=== PATIENT | female | born 1995 | race Caucasian/White ===

== ENCOUNTER 2017-06-03 14:51 | Inpatient (IN) | payer MEDICAID ==
[2017-06-03 15:48] LABS: ADD UMIC NO; UR ASCORBIC ACID NEGATIVE (NEGATIVE); UR BILIRUBIN (Dip) NEGATIVE (NEGATIVE); UR BLOOD (Dip) NEGATIVE (NEGATIVE); UR CLARITY CLEAR (CLEAR); UR COLOR YELLOW (YELLOW); UR GLUCOSE (Dip) NEGATIVE (NEGATIVE); UR KETONES (Dip) NEGATIVE (NEGATIVE); UR LEUKOCYTE ESTERASE (Dip) NEGATIVE Leu/ul (NEGATIVE); UR NITRITE (Dip) NEGATIVE (NEGATIVE); UR SPECIFIC GRAVITY (Dip) 1.008 (1.003-1.030); UR TOTAL PROTEIN (Dip) NEGATIVE (NEGATIVE); UR UROBILINOGEN (Dip) NEGATIVE (NEGATIVE)
[2017-06-03] MEDS ORDERED: AMPICILLIN 2 GM/NS (PMX) 100 ML IVPB ONE (16:00)
--- NOTE | 2017-06-03 16:02 | TRIAGE ---
OB Triage Datetime Report Generated by CPN: 06/03/2017 16:02 Datetime: 06/03/2017 15:30 Assessment Type: Triage Maternal Assessment Level of Consciousness: Fully Conscious DTR's/Clonus: DTRs 2+; No Clonus Headache: Denies Blurred Vision: No Respiratory Effort: Unlabored; Regular Rhythm; Equal Expansion Breath Sounds, Left: Clear and Equal Breath Sounds, Right: Clear and Equal Nausea/Vomiting: Denies RUQ Epigastric Pain: Denies Facial Edema: None Fall Risk Assessment History of Falling: (0) No Secondary Diagnosis: (0) No Ambulatory Aid: (0) Bedrest/Nurse Assist IV Therapy: (0) No Gait: (0) Normal/Bedrest/Immobile Mental Status: (0) Oriented to Own Ability Fall Score: 0 Fall Risk Score Definition: No Risk: No action required Datetime: 06/03/2017 15:19 Stage of : OB Triage Assessment Type: Triage Maternal Assessment Level of Consciousness: Fully Conscious DTR's/Clonus: DTRs 2+; No Clonus Headache: Denies Blurred Vision: No Respiratory Effort: Unlabored; Regular Rhythm; Equal Expansion Breath Sounds, Left: Clear and Equal Breath Sounds, Right: Clear and Equal Nausea/Vomiting: Denies RUQ Epigastric Pain: Denies Lower Extremities Edema: Bilateral Lower Extremities Degree: None Upper Extremities Edema: None Degree: None Facial Edema: None Temperature Route: Axillary Fall Risk Assessment History of Falling: (0) No Secondary Diagnosis: (0) No Ambulatory Aid: (0) Bedrest/Nurse Assist IV Therapy: (0) No Gait: (0) Normal/Bedrest/Immobile Mental Status: (0) Oriented to Own Ability Fall Score: 0 Fall Risk Score Definition: No Risk: No action required Datetime: 06/03/2017 15:10 Time of Arrival: 06/03/2017 14:50 EGA: 39.5 Arrived By: Ambulatory Arrived From: Home Chief Complaint: CONTRACTIONs Movement: Present Contractions: Irregular Vaginal Bleeding: None Vaginal Discharge: Denies Recent Sexual Intercouse: Denies Additional Patient Complaints: PT STATED SHE HAD LIMITED PNC AT [facility] . WILL CALL TO [facility] FOR CARE THIER Time Provider Notified: 06/03/2017 15:12 Provider Notified: dr. dinh Initial Plan: sve, bpp, efw, uds Datetime: 06/03/2017 15:09 Time of Arrival: 06/03/2017 14:50 Arrived By: Ambulatory Arrived From: Home Chief Complaint: CONTRACTIONS Vaginal Bleeding: None Vaginal Discharge: Denies Recent Sexual Intercouse: Denies Datetime: 06/03/2017 15:00 Vaginal Exam Dilatation (cms): 3.0 Effacement (%): 70 Station: -3 Exam By: JULIETTE AMEZQUITA
--- NOTE | 2017-06-03 16:26 | RADRPT ---
PROCEDURE: US OB biophysical profile. CLINICAL INDICATION: decreased movements, labor TECHNIQUE: Multiple sonographic images of the pelvis were obtained. The images were reviewed on a PACS workstation. COMPARISON: No prior studies are available for comparison. FINDINGS: There is a single viable intrauterine gestation. Cardiac activity is present with 139 beats per min [place]. There is a vertex presentation. The placenta is fundal. There is no evidence of placental abruption. There is an increased amount of amniotic fluid with an RAMIRO = 23.2 cm. Biophysical profile: movement 2/2 tone 2/2. breathing 2/2 RAMIRO 2/2 Total 07/07 RPTAT: AA . IMPRESSION: Normal biophysical profile. Mild polyhydramnios. . .Roberto Briceno MD, MD Date Time Electronically viewed and signed by .Roberto Briceno MD, MD on 06/03/2017 16:25 .S/
--- NOTE | 2017-06-03 16:26 | RADRPT ---
PROCEDURE: US OB. CLINICAL INDICATION: Size and dates TECHNIQUE: Multiple sonographic images of the pelvis and gravid uterus were obtained. The images were reviewed on a PACS workstation. COMPARISON: No prior studies are available for comparison. FINDINGS: There is a single viable intrauterine gestation. Cardiac activity is present with 146 beats per min viviana. There is a vertex presentation. The placenta is fundal. There is no evidence of placental abruption. There is an increased amount of amniotic fluid with an RAMIRO = 23.2 cm. Measurements were made in order to determine age. The results are as follows: BPD =9.3 cm HC =33.4 cm AC =36.2 cm FL =6.9 cm Estimated gestational age of approximately 38 weeks and 0 days based on ultrasound measurements. Clinical age: 39 weeks and 5 days. The estimated date of delivery is 06/17/17, based on ultrasound measurements. The EFW = 3568 g, 50%, based on LMP age. RPTAT: AA IMPRESSION: Single viable intrauterine gestation of approximately 38 weeks and 0 days based on ultrasound measu rements. .Roberto Briceno MD, MD Date Time Electronically viewed and signed by .Roberto Briceno MD, MD on 06/03/2017 16:26 .S/
[2017-06-03 17:09] LABS: BARBITURATES Negative (NEGATIVE); BENZODIAZEPINES Negative (NEGATIVE); CANNABINOIDS Negative (NEGATIVE); COCAINE Negative (NEGATIVE); OPIATES Negative (NEGATIVE)
[2017-06-03 18:46] LABS: ADD SCAN DIFF NO
[2017-06-03 18:49] LABS: BASOPHILS % 0.3 % (0.0-2.0); EOSINOPHILS # 0.1 10^3/ul (0.0-0.5); EOSINOPHILS % 1.2 % (0.0-7.0); HEMATOCRIT 31.5 % (37.0-47.0); HEMOGLOBIN 10.2 g/dl (12.0-16.0); LYMPHOCYTES # 2.9 10^3/ul (0.8-2.9); LYMPHOCYTES % 24.2 % (15.0-51.0); MEAN CORPUSCULAR HGB CONC 32.4 g/dl (32.0-37.0); MEAN CORPUSCULAR VOLUME 89.5 fl (82.0-101.0); MEAN PLATELET VOLUME 9.7 fl (7.4-10.4); MONOCYTE # 0.9 10^3/ul (0.3-0.9); MONOCYTES % 7.2 % (0.0-11.0); NEUTROPHILS % 65.9 % (39.0-77.0); PLATELET COUNT 361 10^3/UL (140-415); RED BLOOD COUNT 3.52 10^6/ul (4.20-5.40); RED CELL DISTRIBUTION WIDTH 13.7 % (11.5-14.5); WHITE BLOOD COUNT 12.1 10^3/ul (4.8-10.8)
[2017-06-03 19:19] LABS: ALBUMIN 3.8 g/dl (3.3-4.9); BILIRUBIN,INDIRECT 0.2 mg/dl (0-1.1); BILIRUBIN,TOTAL 0.2 mg/dl (0.2-1.3); TOTAL PROTEIN 6.6 g/dl (6.1-8.1)
[2017-06-03 19:45] LABS: CALCIUM 8.9 mg/dl (8.4-10.2); CREATININE 0.46 mg/dl (0.44-1.00)
[2017-06-03] MEDS ORDERED: AMPICILLIN 1 GM/NS (PMX) 50 ML IVPB SCH (20:00)
--- NOTE | 2017-06-03 23:37 | PN ---
Triage Information Date/Time Jun 03, 2017 at 15:15 Weeks of Gestation 38 weeks and 3 days : 1 Para: 0 Additional information 21-year-old with IUP at 38 weeks and 3 days by her ultrasound today as well as ultrasound and [facility] in third trimester with no care presented with complaint of feeling uterine contractions. She had only 2 visits per patient at [facility]. Records obtained from [facility] that confirms her gestational age by her third trimester prior ultrasound today's also consistent. Patient was unaware of the . She denies any leaking of fluid or vaginal bleeding or decreased movement. She does not have any insurance. Objective Heart Rate: 130's Contractions: 6-10 Minutes Apart Exam General appearance: Alert and oriented 4 patient does not appear to be in any acute distress. Abdomen: Soft, gravid, nontender, fundal height consistent with gestational age. NST: Category 1 BPP: 07/07 Growth scan confirms gestational age at about 38+ weeks Normal amniotic fluid noted Patient received hydration and observed and examined. Repeat examination did not show any cervical change. Exam 1/2-2 cm 60% -2 prior to discharge home Results/Medications Result Diagram: 06/03/17 1817 06/03/17 1843 Results 24 hrs Laboratory Tests Test 06/03/17 14:10 06/03/17 18:17 06/03/17 18:43 Urine Color YELLOW Urine Clarity CLEAR Urine pH 7.0 Urine Specific [place] 1.008 Urine Ketones NEGATIVE Urine Nitrite NEGATIVE Urine Bilirubin NEGATIVE Urine Urobilinogen NEGATIVE Urine Leukocyte Esterase NEGATIVE Urine Hemoglobin NEGATIVE Urine Glucose NEGATIVE Urine Total Protein NEGATIVE Urine Opiates Screen Negative Urine Barbiturates Negative Urine Amphetamines Screen Negative Urine Benzodiazepines Screen Negative Urine Cocaine Screen Negative Urine Cannabinoids Negative White Blood Count 12.1 H Red Blood Count 3.52 L Hemoglobin 10.2 L Hematocrit 31.5 L Mean Corpuscular Volume 89.5 Mean Corpuscular Hemoglobin 29.0 Mean Corpuscular Hemoglobin Concent 32.4 Red Cell Distribution Width 13.7 Platelet Count 361 Mean Platelet Volume 9.7 Neutrophils % 65.9 Lymphocytes % 24.2 Monocytes % 7.2 Eosinophils % 1.2 Basophils % 0.3 Nucleated Red Blood Cells % 0.0 Neutrophils # 8.0 H Lymphocytes # 2.9 Monocytes # 0.9 Eosinophils # 0.1 Basophils # 0.0 Nucleated Red Blood Cells # 0.0 Hemoglobin A1c 5.9 Total Bilirubin 0.2 Direct Bilirubin 0.00 Indirect Bilirubin 0.2 Aspartate Amino Transf (AST/SGOT) 17 Alanine Aminotransferase (ALT/SGPT) 22 Alkaline Phosphatase 142 H Total Protein 6.6 Albumin 3.8 Hepatitis B Surface Antigen NEGATIVE Sodium Level 132 L Potassium Level 4.0 Chloride Level 104 Carbon Dioxide Level 22 Anion Gap 10 Blood Urea Nitrogen 5 L Creatinine 0.46 Glucose Level 95 Calcium Level 8.9 Assessment/Plan IUP at 38 weeks plus No care No evidence of PPROM testing reassuring Missed. all her labs as well as ultrasound and genetic screening for chromosome abnormalities labs ordered today as well as hemoglobin A1c Patient to come back to triage tomorrow to see social work care in order to expedite the process of obtaining insurance If she does not deliver could be urgently referred to perinatologist for anatomy ultrasound recommend continue testing in triage every 3 days We will consult the perinatologist about the time of delivery Labor precaution and kick count discussed. Patient verbalized understanding all above discussion CARMEN WARE MD Jun 03, 2017 23:37
== END 2017-06-03 19:43 | disposition home or self-care (01) | DRG 780 ==
LOC: L-D 14:51 → OBT 14:51 → L-D 15:15 → OBT 15:15 → L-D 15:48
PROVIDERS: ADMIT Obstetrics & Gynecology Obstetrics; ATTEND Obstetrics & Gynecology Obstetrics
DX: O47.1 False labor at or after 37 completed weeks of gestation (principal); O09.33 Supervision of pregnancy with insufficient antenatal care, third trimester; Z3A.38 38 weeks gestation of pregnancy
CPT/HCPCS: 76815; 76818; 80048; 80076; 80307; 81003; 83036; 85025; 86592; 86762; 87081; 87340; 87591; G0463

== ENCOUNTER 2017-06-09 20:47 | Inpatient (IN) | payer MEDICAID ==
[~2017-06-09] VITALS: Ht 167.6 cm; Wt 87.2 kg
[2017-06-09] MEDS ORDERED: PREN1TAB79 PO (21:38)
[2017-06-09 21:39] VITALS: BP 123/64; PULSE 109; RESP 20; Ht 167.6 cm; Wt 87.2 kg
--- NOTE | 2017-06-09 22:51 | RADRPT ---
PROCEDURE: ULTRASOUND BIOPHYSICAL PROFILE CLINICAL INDICATION: 21-year-old female with contractions for viability. TECHNIQUE: Multiple sonographic images were obtained in order to perform a biophysical profile The images were reviewed on a PACS workstation. COMPARISON: None. FINDINGS: There is a single viable intrauterine gestation. There is a vertex presentation. Cardiac activity i s present at 139 beats per minute. The placenta is fundal. The results of the biophysical profile a re as follows: breathing movement = 2/2 Gross body movement = 2/2 tone = 2/2 Qualitative amniotic fluid volume = 2/2 Amniotic fluid index equals 15.9 cm. This yields a biophysical profile score of 8/8. IMPRESSION: Biophysical profile score is 8/8. .Kris Collazo MD, Date Time Electronically viewed and signed by .Kris Collazo MD, on 06/09/2017 22:51 .M/
--- NOTE | 2017-06-09 22:53 | RADRPT ---
PROCEDURE: ULTRASOUND OBSTETRICAL CLINICAL INDICATION: 21-year-old female with contractions for size and date determination . TECHNIQUE: Multiple sonographic images of the pelvis were obtained. The images were reviewed on a PACS workstation. COMPARISON: Ultrasound biophysical profile obtained concurrently: OB ultrasound June 03, 2017. FINDINGS: The cervix is not well visualized. There is a single viable intrauterine gestation. Cardiac activit y is present with 143 beats per minute. There is a vertex presentation. Measurements were made in or fredi to determine age. The results are as follows: BPD = 9.36 cm, HC = 34.23 cm, AC = 37.50 cm, FL = 7.22 cm. This yields and estimated gestational ag e of approximately 39 weeks 0 days. The estimated date of delivery is June 16, 2017. The EFW = 392 8 +/- 589 g (8 lb 11 oz). The GP is 84%. The placenta is fundal. There is no evidence for an abruption or placenta previa. IMPRESSION: 1. Single viable intrauterine gestation of approximately 39 weeks 0 days with vertex presentation. The estimated date of delivery is June 16, 2017. 2. The estimated weight is 3928 +/- 589 g (8 lb 11 oz). The GP is 84%. .Kris Collazo MD, Date Time Electronically viewed and signed by .Kris Collazo MD, MD on 06/09/2017 22:53 .M/
[2017-06-09] MEDS ORDERED: MISOPROSTOL 200 MCG TAB PR PRN (23:30)
[2017-06-09] MEDS ORDERED: BUTORPHANOL 2 MG INJ IV PRN (23:30)
[2017-06-09] MEDS ORDERED: OXYTOCIN 30 UNITS/LR 500 ML IV SCH ×3 (23:30)
[2017-06-09] MEDS ORDERED: AMPICILLIN 2 GM/NS (PMX) 100 ML IV ONE (23:30)
[2017-06-09] MEDS ORDERED: LACTATED RINGER'S 1,000 ML IV PRN (23:30)
[2017-06-09] MEDS ORDERED: LIDOCAINE 1% (MPF) 30 ML INJ INJ PRN (23:30)
[2017-06-09] MEDS ORDERED: IBUPROFEN 600 MG TAB PO PRN (23:30)
[2017-06-09] MEDS ORDERED: OXYTOCIN 30 UNITS/LR 500 ML IV PRN (23:30)
[2017-06-09] MEDS ORDERED: METHYLERGONOVINE 0.2 MG INJ IM PRN (23:30)
[2017-06-09] MEDS ORDERED: CARBOPROST 250 MCG INJ IM PRN (23:30)
[2017-06-09] MEDS: LACTATED RINGER'S 1,000 ML IV SCH (23:33)
[2017-06-09 23:40] LABS: ADD SCAN DIFF NO
[2017-06-09 23:49] LABS: BASOPHILS % 0.3 % (0.0-2.0); EOSINOPHILS # 0.1 10^3/ul (0.0-0.5); EOSINOPHILS % 1.1 % (0.0-7.0); HEMATOCRIT 28.8 % (37.0-47.0); HEMOGLOBIN 9.6 g/dl (12.0-16.0); LYMPHOCYTES # 3.2 10^3/ul (0.8-2.9); LYMPHOCYTES % 27.2 % (15.0-51.0); MEAN CORPUSCULAR HEMOGLOBIN 29.3 pg (29.0-33.0); MEAN CORPUSCULAR HGB CONC 33.3 g/dl (32.0-37.0); MEAN CORPUSCULAR VOLUME 87.8 fl (82.0-101.0); MEAN PLATELET VOLUME 9.7 fl (7.4-10.4); MONOCYTES % 8.4 % (0.0-11.0); NEUTROPHIL # 7.2 10^3/ul (1.6-7.5); NEUTROPHILS % 62.1 % (39.0-77.0); PLATELET COUNT 366 10^3/UL (140-415); RED BLOOD COUNT 3.28 10^6/ul (4.20-5.40); RED CELL DISTRIBUTION WIDTH 13.4 % (11.5-14.5); WHITE BLOOD COUNT 11.6 10^3/ul (4.8-10.8)
[2017-06-09 23:55] LABS: ADD UMIC YES; UR ASCORBIC ACID NEGATIVE (NEGATIVE); UR BACTERIA FEW /HPF (NONE SEEN); UR BILIRUBIN (Dip) NEGATIVE (NEGATIVE); UR BLOOD (Dip) NEGATIVE (NEGATIVE); UR CLARITY CLEAR (CLEAR); UR COLOR YELLOW (YELLOW); UR GLUCOSE (Dip) NEGATIVE (NEGATIVE); UR KETONES (Dip) NEGATIVE (NEGATIVE); UR LEUKOCYTE ESTERASE (Dip) 2+ Leu/ul (NEGATIVE); UR NITRITE (Dip) NEGATIVE (NEGATIVE); UR RBC 1 /HPF (0-5); UR SPECIFIC GRAVITY (Dip) 1.006 (1.003-1.030); UR SQUAMOUS EPITHELIAL CELL FEW /HPF (FEW); UR TOTAL PROTEIN (Dip) NEGATIVE (NEGATIVE); UR UROBILINOGEN (Dip) NEGATIVE (NEGATIVE)
[2017-06-10 00:16] LABS: INR 0.96; PARTIAL THROMBOPLASTIN TIME 29.2 Sec (25.0-35.0); PROTIME 12.8 Sec (12.2-14.2)
[2017-06-10 00:22] LABS: BARBITURATES Negative (NEGATIVE); BENZODIAZEPINES Negative (NEGATIVE); CANNABINOIDS Negative (NEGATIVE); COCAINE Negative (NEGATIVE); OPIATES Negative (NEGATIVE)
[2017-06-10] MEDS ORDERED: LACTATED RINGER'S 1,000 ML IV ONE (00:41)
[2017-06-10] MEDS: LACTATED RINGER'S 1,000 ML IV SCH ×3 (00:43→11:01)
[2017-06-10] MEDS ORDERED: FENTAnyl 2MCG/ML-ROPIV 0.2% 100 ML ONE (00:45)
--- NOTE | 2017-06-10 00:54 | HP ---
Date/Time of Note Date/Time of Note DATE: 06/10/17 TIME: 00:53 OB - History Hx of Present : 6 Para: 4 Care: Limited Care Ultrasounds: Normal mid trimester US Obstetrical Complications: None Medical Complications: None Past Family/Social History * Past Medical, Surgical, Family and Obstetric Histories reviewed from chart. OB Admission Exam Vital Signs Vital Signs Vital Signs Date Time Temp Pulse Resp B/P Pulse Ox O2 Delivery O2 Flow Rate FiO2 06/09/17 21:39 98.1 109 20 123/64 Room Air Physical Exam Lungs: Clear Abdomen: WNL Extremities: Normal Cervical Dilatation: 3cm Effacement: 75% Station: -1 Membranes: Intact Heart Rate: 140's Accelerations: Accelerations Present Decelerations: No Decelerations Varibility: Moderate Contractions on Admission: < 5 Minutes Apart Last 72 hours Lab Results CBC & BMP 06/09/17 23:25 OB Assessment/Plan Reason for admission: induction of labor Induction Method: per Pitocin Protocol RUBY NUÑEZ M.D. Jun 10, 2017 00:54
[2017-06-10] MEDS ORDERED: KETOROLAC 30 MG INJ IV PRN (01:00)
[2017-06-10] MEDS ORDERED: DIPHENHYDRAMINE 50 MG INJ IV PRN (01:00)
[2017-06-10] MEDS ORDERED: NALOXONE (0.4 MG/ML) INJ IV PRN (01:00)
[2017-06-10] MEDS ORDERED: PROCHLORPERAZINE 10 MG INJ IV PRN (01:00)
[2017-06-10] MEDS ORDERED: morphine 2 MG INJ IV PRN (01:00)
[2017-06-10] MEDS ORDERED: ONDANSETRON 4 MG INJ IV ONE (01:00)
[2017-06-10] MEDS ORDERED: ONDANSETRON 4 MG INJ IV PRN ×2 (01:00→16:00)
[2017-06-10] MEDS ORDERED: morphine 4 MG/ML VIAL IV PRN (01:00)
[2017-06-10] MEDS ORDERED: CITRIC ACID/NA CITRATE 30 ML CUP PO ONE (01:00)
[2017-06-10] MEDS: FENTAnyl 2MCG/ML-ROPIV 0.2% 100 ML BAG EPI SCH ×2 (02:13→07:51)
[2017-06-10] MEDS ORDERED: AZITHROMYCIN 500MG/NS (PMX) 250 ML IVPB ONE (03:00)
[2017-06-10] MEDS ORDERED: AMPICILLIN 1 GM/NS (PMX) 50 ML IV SCH (03:30)
--- NOTE | 2017-06-10 08:06 | TRIAGE ---
OB Triage Datetime Report Generated by CPN: 06/10/2017 08:06 Datetime: 06/10/2017 07:27 Assessment Type: Ongoing Assessment Datetime: 06/10/2017 07:00 Stage of : Labor Labor Evaluation Frequency: 6-7 Monitor Mode: External Duration (sec)2399: 50-90 Quality: Strong Pattern: Normal: <= 5 Contractions in 10 Minutes Resting Tone [place]: Relaxed Heart Rate FHR Baseline Rate: 135 Monitor Mode: External US FHR Baseline Changes: No Baseline Change Variability: Moderate 6-25 bpm Decelerations: None Category: Category I Datetime: 06/10/2017 06:30 Stage of : Labor Labor Evaluation Frequency: 4-5 Monitor Mode: External Duration (sec)2399: 60-100 Quality: Strong Pattern: Normal: <= 5 Contractions in 10 Minutes Resting Tone [place]: Relaxed Heart Rate FHR Baseline Rate: 135 Monitor Mode: External US FHR Baseline Changes: No Baseline Change Variability: Moderate 6-25 bpm Decelerations: None Category: Category I Datetime: 06/10/2017 06:00 Stage of : Labor Labor Evaluation Frequency: 3-5 Monitor Mode: External Duration (sec)2399: 70-90 Quality: Strong Pattern: Normal: <= 5 Contractions in 10 Minutes Resting Tone [place]: Relaxed Heart Rate FHR Baseline Rate: 135 Monitor Mode: External US FHR Baseline Changes: No Baseline Change Variability: Moderate 6-25 bpm Accelerations: 15X15 Decelerations: None Category: Category I Datetime: 06/10/2017 05:30 Stage of : Labor Labor Evaluation Frequency: 3 Monitor Mode: External Duration (sec)2399: 60-80 Quality: Strong Pattern: Normal: <= 5 Contractions in 10 Minutes Resting Tone [place]: Relaxed Heart Rate FHR Baseline Rate: 135 Monitor Mode: External US FHR Baseline Changes: No Baseline Change Variability: Moderate 6-25 bpm Accelerations: 15X15 Decelerations: None Category: Category I Datetime: 06/10/2017 05:01 Vaginal Exam Dilatation (cms): 5.0 Datetime: 06/10/2017 05:00 Stage of : Labor Labor Evaluation Frequency: 2-5 Monitor Mode: External Duration (sec)2399: 70-110 Quality: Strong Pattern: Normal: <= 5 Contractions in 10 Minutes Resting Tone [place]: Relaxed Heart Rate FHR Baseline Rate: 135 Monitor Mode: Internal Scalp Electrode FHR Baseline Changes: No Baseline Change Variability: Moderate 6-25 bpm Accelerations: 15X15 Decelerations: None Category: Category I Vaginal Exam Dilatation (cms): 5.0 Effacement (%): 90 Station: -1 Exam By: DR. NUÑEZ Membrane Status: Ruptured Membranes Rupture Method: Artificial Amniotic Fluid Color: Clear Amniotic Fluid Amount: Large Amniotic Fluid Odor: Normal Datetime: 06/10/2017 04:30 Stage of : Labor Labor Evaluation Frequency: 2-9 Monitor Mode: External Duration (sec)2399: 70-100 Quality: Strong Pattern: Normal: <= 5 Contractions in 10 Minutes Resting Tone [place]: Relaxed Heart Rate FHR Baseline Rate: 135 Monitor Mode: External US FHR Baseline Changes: No Baseline Change Variability: Moderate 6-25 bpm Accelerations: 15X15 Decelerations: None Category: Category I Datetime: 06/10/2017 04:00 Stage of : Labor Labor Evaluation Frequency: 2-4 Monitor Mode: External Duration (sec)2399: 80-120 Quality: Strong Pattern: Normal: <= 5 Contractions in 10 Minutes Resting Tone [place]: Relaxed Heart Rate FHR Baseline Rate: 135 Monitor Mode: External US FHR Baseline Changes: No Baseline Change Variability: Moderate 6-25 bpm Accelerations: 15X15 Decelerations: None Category: Category I Datetime: 06/10/2017 03:30 Stage of : Labor Labor Evaluation Frequency: 2-3.5 Monitor Mode: External Duration (sec)2399: 60-90 Quality: Moderate Pattern: Normal: <= 5 Contractions in 10 Minutes Resting Tone [place]: Relaxed Heart Rate FHR Baseline Rate: 135 Monitor Mode: External US FHR Baseline Changes: No Baseline Change Variability: Moderate 6-25 bpm Accelerations: 15X15 Decelerations: None Category: Category I Datetime: 06/10/2017 03:00 Stage of : Labor Labor Evaluation Frequency: 2-4 Monitor Mode: External Duration (sec)2399: 60-90 Quality: Moderate Pattern: Normal: <= 5 Contractions in 10 Minutes Resting Tone [place]: Relaxed Heart Rate FHR Baseline Rate: 135 Monitor Mode: External US FHR Baseline Changes: No Baseline Change Variability: Moderate 6-25 bpm Accelerations: 15X15 Decelerations: None Category: Category I Datetime: 06/10/2017 02:40 Stage of : Labor Datetime: 06/10/2017 02:30 Stage of : Labor Labor Evaluation Frequency: 2-4 Monitor Mode: External Duration (sec)2399: 60-90 Quality: Moderate Pattern: Normal: <= 5 Contractions in 10 Minutes Resting Tone [place]: Relaxed Heart Rate FHR Baseline Rate: 135 Monitor Mode: External US FHR Baseline Changes: No Baseline Change Variability: Moderate 6-25 bpm Accelerations: 15X15 Decelerations: None Category: Category I Datetime: 06/10/2017 02:00 Stage of : Labor Labor Evaluation Frequency: 3-3.5 Monitor Mode: External Duration (sec)2399: 50-110 Quality: Moderate Pattern: Normal: <= 5 Contractions in 10 Minutes Resting Tone [place]: Relaxed Heart Rate FHR Baseline Rate: 135 Monitor Mode: External US FHR Baseline Changes: No Baseline Change Variability: Moderate 6-25 bpm Accelerations: 15X15 Decelerations: None Category: Category I Datetime: 06/10/2017 01:55 Vaginal Exam Dilatation (cms): 3.0 Effacement (%): 70 Station: -2 Exam By: Marie POTTS Membrane Status: Intact Vaginal Bleeding: None Cervix, Consistency: Soft Cervix, Position: Midposition Presentation 'A': Cephalic Datetime: 06/10/2017 01:32 Comments: LOSS OF CONTACT D/T MATERNAL POSITION. CONTINUED SURVEILLANCE. PT REPORTED M OVEMENT. Datetime: 06/10/2017 01:30 Labor Evaluation Frequency: IRREGULAR Monitor Mode: External Duration (sec)2399: 50-100 Quality: Moderate Pattern: Normal: <= 5 Contractions in 10 Minutes Resting Tone [place]: Relaxed Heart Rate FHR Baseline Rate: 135 Monitor Mode: External US FHR Baseline Changes: No Baseline Change Variability: Moderate 6-25 bpm Accelerations: 15X15 Decelerations: None Category: Category I Datetime: 06/10/2017 01:26 Stage of : Labor Datetime: 06/10/2017 01:22 Stage of : Labor Datetime: 06/10/2017 01:00 Stage of : Labor Labor Evaluation Frequency: IRREGULAR Monitor Mode: External Duration (sec)2399: 70-80 Quality: Moderate Pattern: Normal: <= 5 Contractions in 10 Minutes Resting Tone [place]: Relaxed Heart Rate FHR Baseline Rate: 135 Monitor Mode: External US Variability: Moderate 6-25 bpm Accelerations: 15X15 Decelerations: None Category: Category I Pain Assessment Pain Scale: 8 Pain Presence: Intermittent Pain Type: Contraction Pain Location: Abdomen; Back Pain Goal: 0 Pain Relief Measures: Comfort Measures Datetime: 06/10/2017 00:49 Stage of : Labor Datetime: 06/10/2017 00:20 Stage of : Labor Datetime: 06/10/2017 00:00 Stage of : Labor Assessment Type: Admission Assessment Vaginal Bleeding: None Maternal Assessment Level of Consciousness: Fully Conscious DTR's/Clonus: DTRs 2+; No Clonus Headache: Denies Blurred Vision: No Respiratory Effort: Unlabored; Regular Rhythm; Equal Expansion Breath Sounds, Left: Clear and Equal Breath Sounds, Right: Clear and Equal Nausea/Vomiting: Denies RUQ Epigastric Pain: Denies Lower Extremities Edema: None Degree: None Upper Extremities Edema: None Degree: None Facial Edema: None Fall Risk Assessment History of Falling: (0) No Secondary Diagnosis: (0) No Ambulatory Aid: (0) Bedrest/Nurse Assist IV Therapy: (20) Yes Gait: (0) Normal/Bedrest/Immobile Mental Status: (0) Oriented to Own Ability Fall Score: 20 Fall Risk Score Definition: No Risk: No action required Pain Assessment Pain Scale: 8 Pain Presence: Intermittent Pain Type: Contraction Pain Location: Abdomen; Back Pain Goal: 0 Datetime: 06/09/2017 23:55 Time of Arrival: 06/10/2017 00:00 EGA: 40.5 Arrived By: Wheelchair Arrived From: Other Unit in Hospital Datetime: 06/09/2017 23:00 Stage of : OB Triage Labor Evaluation Frequency: 1-3 Monitor Mode: External Duration (sec)2399: 50-90 Quality: Mild Pattern: Normal: <= 5 Contractions in 10 Minutes Resting Tone [place]: Relaxed Heart Rate FHR Baseline Rate: 145 Monitor Mode: External US Variability: Moderate 6-25 bpm Accelerations: 15X15 Decelerations: None Category: Category I Datetime: 06/09/2017 22:55 Stage of : OB Triage Datetime: 06/09/2017 22:03 Stage of : OB Triage Datetime: 06/09/2017 22:00 Stage of : OB Triage Labor Evaluation Frequency: 3-5 Monitor Mode: External Duration (sec)2399: 40-90 Quality: Mild Pattern: Normal: <= 5 Contractions in 10 Minutes Resting Tone [place]: Relaxed Heart Rate FHR Baseline Rate: 150 Monitor Mode: External US Variability: Moderate 6-25 bpm Accelerations: 15X15 Decelerations: None Category: Category I Datetime: 06/09/2017 21:44 Stage of : OB Triage Datetime: 06/09/2017 21:30 Vaginal Exam Dilatation (cms): 3.0 Effacement (%): 60 Station: -3 Exam By: ALIRIO Norris Membrane Status: Intact Vaginal Bleeding: None Cervix, Consistency: Firm Cervix, Position: Posterior Datetime: 06/09/2017 21:16 Stage of : OB Triage Datetime: 06/09/2017 21:00 Stage of : OB Triage Labor Evaluation Frequency: 1.5-3.5 Monitor Mode: External Duration (sec)2399: 40-70 Quality: Mild Pattern: Normal: <= 5 Contractions in 10 Minutes Resting Tone [place]: Relaxed Heart Rate FHR Baseline Rate: 160 Monitor Mode: External US Variability: Moderate 6-25 bpm Accelerations: 15X15 Decelerations: None Category: Category I Datetime: 06/09/2017 20:46 Stage of : OB Triage Assessment Type: Triage Maternal Assessment Level of Consciousness: Fully Conscious DTR's/Clonus: DTRs 2+; No Clonus Headache: Denies Blurred Vision: No Respiratory Effort: Unlabored; Regular Rhythm; Equal Expansion Breath Sounds, Left: Clear and Equal Breath Sounds, Right: Clear and Equal Nausea/Vomiting: Denies RUQ Epigastric Pain: Denies Lower Extremities Edema: Bilateral Lower Extremities Degree: 1+ Upper Extremities Edema: None Degree: None Facial Edema: None Temperature Route: Oral Fall Risk Assessment History of Falling: (0) No Secondary Diagnosis: (0) No Ambulatory Aid: (0) Bedrest/Nurse Assist IV Therapy: (0) No Gait: (0) Normal/Bedrest/Immobile Mental Status: (0) Oriented to Own Ability Fall Score: 0 Fall Risk Score Definition: No Risk: No action required Datetime: 06/09/2017 20:35 Time of Arrival: 06/09/2017 20:31 EGA: 40.4 Arrived By: Ambulatory Arrived From: Home Chief Complaint: UCs [id number] Movement: Present Contractions: Irregular Time Contractions Began: 06/09/2017 17:00 Contractions: [id number] Rupture of Membranes: Denies Vaginal Bleeding: None Vaginal Discharge: Present Abdominal Trauma: Not Applicable Patient Complaints: Contractions; Cramping Time Provider Notified: 06/09/2017 21:44 Provider Notified: Initial Plan: EFM x2, VE Datetime: 06/03/2017 19:27 Assessment Type: Ongoing Assessment Maternal Assessment Level of Consciousness: Fully Conscious DTR's/Clonus: DTRs 2+; No Clonus Headache: Denies Blurred Vision: No Respiratory Effort: Unlabored; Regular Rhythm; Equal Expansion Breath Sounds, Left: Clear and Equal Breath Sounds, Right: Clear and Equal Nausea/Vomiting: Denies RUQ Epigastric Pain: Denies Lower Extremities Edema: None Degree: None Upper Extremities Edema: None Degree: None Facial Edema: None Temperature Route: Oral Fall Risk Assessment History of Falling: (0) No Secondary Diagnosis: (0) No Ambulatory Aid: (0) Bedrest/Nurse Assist IV Therapy: (0) No Gait: (0) Normal/Bedrest/Immobile Mental Status: (0) Oriented to Own Ability Fall Score: 0 Fall Risk Score Definition: No Risk: No action required Datetime: 06/03/2017 19:15 Membrane Status: Intact Datetime: 06/03/2017 17:37 Labor Evaluation Frequency: OCCASIONAL Monitor Mode: External Duration (sec)2399: 50-60 Quality: Mild Pattern: Normal: <= 5 Contractions in 10 Minutes Resting Tone [place]: Relaxed Heart Rate FHR Baseline Rate: 135 Monitor Mode: External US FHR Baseline Changes: No Baseline Change Variability: Moderate 6-25 bpm Accelerations: 15X15 Decelerations: None Category: Category I Datetime: 06/03/2017 17:36 Monitor Mode: External US Datetime: 06/03/2017 17:00 Labor Evaluation Frequency: OCCASIONAL Monitor Mode: External Duration (sec)2399: 40-50 Quality: Mild Pattern: Normal: <= 5 Contractions in 10 Minutes Resting Tone [place]: Relaxed Heart Rate FHR Baseline Rate: 135 Monitor Mode: External US FHR Baseline Changes: No Baseline Change Variability: Moderate 6-25 bpm Accelerations: 15X15 Decelerations: None Category: Category I Datetime: 06/03/2017 16:55 Vaginal Exam Dilatation (cms): 2.0 Effacement (%): 70 Station: -3 Exam By: SS Datetime: 06/03/2017 15:30 Fall Score: 0 Fall Risk Score Definition: No Risk: No action required Datetime: 06/03/2017 15:19 Fall Score: 0 Fall Risk Score Definition: No Risk: No action required Datetime: 06/03/2017 15:10 EGA: 39.5
--- NOTE | 2017-06-10 13:31 | LDN ---
Date/Time of Note Date/Time of Note DATE: 06/10/17 TIME: 13:29 Delivery Summary I was called for delivery due to maternal urge to push. Patient had unremarkable intrapartum course Weeks of Gestation 40 weeks and 5 days Placenta Delivered: Spontaneously Meconium: none Episiotomy: No Perineal laceration: 0 Laceration repair: No laceration Anesthesia type: Epidural Sponge & Needle done & correct: Yes All needle counts correct: Yes Any foreign bodies felt in the: No Problems: Delivery Information Sex Sex: female Apgars 1 Minute: 9 5 Minute: 9 Suctioning Nose & mouth suctioned at [place]: Yes Delee suction performed: Yes Umbilical Cord Umbilical cord with: 3 Vessels Cord presentations: no nuchal cord Cord Blood was obtained: Yes CARMEN WARE MD Jun 10, 2017 13:31
[2017-06-10 15:15] VITALS: BP 120/64; PULSE 91; RESP 18
[2017-06-10] MEDS: LACTATED RINGER'S 1,000 ML IV* SCH ×2 (15:40→23:40)
[2017-06-10] MEDS ORDERED: LANOLIN 7 GM TUBE TOP PRN (16:00)
[2017-06-10] MEDS ORDERED: WITCH HAZEL/GLYCERIN PAD PR PRN (16:00)
[2017-06-10] MEDS ORDERED: MISOPROSTOL 200 MCG TAB PR PRN (16:00)
[2017-06-10] MEDS ORDERED: DIPHENHYDRAMINE 25 MG CAP PO PRN (16:00)
[2017-06-10] MEDS ORDERED: METHYLERGONOVINE 0.2 MG TAB PO PRN (16:00)
[2017-06-10] MEDS ORDERED: OXYTOCIN 30 UNITS/LR 500 ML IV PRN (16:00)
[2017-06-10] MEDS ORDERED: CARBOPROST 250 MCG INJ IM PRN (16:00)
[2017-06-10] MEDS ORDERED: ZOLPIDEM 5 MG TAB PO PRN (16:00)
[2017-06-10] MEDS ORDERED: METHYLERGONOVINE 0.2 MG INJ IM PRN (16:00)
[2017-06-10 16:44] LABS: HEMATOCRIT 25.4 % (37.0-47.0); HEMOGLOBIN 8.5 g/dl (12.0-16.0)
[2017-06-10] MEDS: IBUPROFEN 600 MG TAB PO SCH (18:11)
[2017-06-10 20:00] VITALS: BP 114/58; PULSE 100; RESP 20
[2017-06-10] MEDS: SENNA/DOCUSATE NA (8.6MG/50MG) TAB PO SCH (21:14)
[2017-06-10] MEDS: morphine 2 MG INJ IV PRN (22:48)
[2017-06-11] MEDS: IBUPROFEN 600 MG TAB PO SCH ×5 (00:13→23:57)
[2017-06-11] MEDS: morphine 2 MG INJ IV PRN (02:56)
[2017-06-11 08:15] VITALS: BP 119/79; PULSE 90; RESP 19
[2017-06-11] MEDS: SENNA/DOCUSATE NA (8.6MG/50MG) TAB PO SCH ×2 (09:09→21:48)
[2017-06-11] MEDS: ACETAMINOPHEN/CODEINE #3 TAB PO PRN ×2 (09:09→14:49)
[2017-06-11 12:17] VITALS: BP 125/74; PULSE 76; RESP 20
[2017-06-11 12:20] LABS: RUBELLA ANTIBODY - IGG 1.01 index
--- NOTE | 2017-06-11 12:20 | PN ---
Date/Time of Note Date/Time of Note DATE: 06/11/17 TIME: 12:17 OB Subjective Subjective Subjective June 11, 2017 Hospital visit Post day 1 Patient is doing well, Ambulatory She is afebrile Abdomen is soft , Fundus is firm Moderate amount of lochia Breasts are soft, Nipples are intact No calf tenderness. Perineum intact Laboratory Tests Test 06/10/17 16:25 Hemoglobin 8.5g/dl Hematocrit 25.4% Current Medications Medications (Trade) Dose Ordered Sig/Yadira Route PRN Reason Start Time Stop Time Status Last Admin Dose Admin Lactated Ringer's 1,000 ml @ 125 mls/hr Q8H IV 06/09/17 23:06 06/10/17 15:47 DC 06/10/17 11:01 Ampicillin 100 ml @ 100 mls/hr ONCE ONCE IV 06/09/17 23:30 06/10/17 00:29 DC Ampicillin 50 ml @ 100 mls/hr Q4H IV 06/10/17 03:30 06/10/17 03:30 DC Oxytocin/Lactated Ringer's 500 ml @ 0 mls/hr TITRATE IV 06/09/17 23:30 06/10/17 15:47 DC 06/10/17 02:10 Butorphanol Tartrate (Stadol) 2 mg Q2H PRN IV PAIN 06/09/17 23:30 06/10/17 15:47 DC Lidocaine 30 ml 30 ml ONCE PRN INJ EPISIOTOMY/TEARING 06/09/17 23:30 06/10/17 15:47 DC Oxytocin/Lactated Ringer's 500 ml @ 125 mls/hr ONCE -MAY REPEAT X1 IV 06/09/17 23:30 06/10/17 15:47 DC Oxytocin/Lactated Ringer's 500 ml @ 125 mls/hr ONCE IV 06/09/17 23:30 06/10/17 15:47 DC Ibuprofen 600 mg 600 mg ONCE PRN PO Mild Pain (Pain Score 1-3) 06/09/17 23:30 06/10/17 15:47 DC 06/10/17 14:38 Lactated Ringer's 1,000 ml @ 2,000 mls/hr Q30M PRN IV PRE-EPIDURAL BOLUS 06/09/17 23:30 06/10/17 15:47 DC Oxytocin/Lactated Ringer's 500 ml @ 0 mls/hr ONCE PRN IV For Hemorrhage Management 06/09/17 23:30 06/10/17 15:47 DC 06/10/17 13:34 Methylergonovine Maleate (Methergine) 0.2 mg ONCE PRN IM VAGINAL BLEEDING 06/09/17 23:30 06/10/17 15:47 DC Carboprost Tromethamine (Hemabate) 250 mcg ONCE PRN IM VAGINAL BLEEDING 06/09/17 23:30 06/10/17 15:47 DC Misoprostol (Cytotec) 1,000 mcg ONCE PRN WI VAGINAL BLEEDING 06/09/17 23:30 06/10/17 15:47 DC Naloxone HCl (Narcan) 0.1 mg Q2M PRN IV FOR RESP RATE 8 OR LESS 06/10/17 01:00 06/10/17 15:47 DC Ketorolac Tromethamine (Toradol) 30 mg Q6H PRN IV PAIN 06/10/17 01:00 06/10/17 15:47 DC Morphine Sulfate (morphine) 2 mg Q3H PRN IV PAIN LEVEL 1-5 06/10/17 01:00 06/10/17 15:47 DC Morphine Sulfate (morphine) 4 mg Q3H PRN IV PAIN LEVEL 6-10 06/10/17 01:00 06/10/17 15:47 DC Diphenhydramine HCl (Benadryl) 25 mg Q6H PRN IV ITCHING 06/10/17 01:00 06/10/17 15:47 DC 06/10/17 06:09 Ondansetron HCl (Zofran Inj) 4 mg Q6H PRN IV NAUSEA AND/OR VOMITING 06/10/17 01:00 06/10/17 15:47 DC Prochlorperazine (Compazine Inj) 10 mg ONCE PRN IV NAUSEA AND/OR VOMITING 06/10/17 01:00 06/10/17 15:47 DC Fentanyl/ Ropivacaine 100 ml 100 ml EPIDURAL INFUSION EPI 06/10/17 01:00 06/10/17 15:47 DC 06/10/17 07:51 Lactated Ringer's (Lr) 1,000 ml @ 1,000 mls/hr Q1H ONCE IV 06/10/17 00:41 06/10/17 01:40 DC Ondansetron HCl (Zofran Inj) 4 mg pre-procedure ONCE IV 06/10/17 01:00 06/10/17 01:01 DC 06/10/17 00:52 Citric Acid/ Sodium Citrate 30 ml 30 ml PRE-OP ONCE PO 06/10/17 01:00 06/10/17 01:01 DC 06/10/17 00:52 Fentanyl/ Ropivacaine 100 ml @ STK-MED ONCE .ROUTE 06/10/17 00:45 06/10/17 00:46 DC Azithromycin 250 ml @ 250 mls/hr ONCE ONCE IVPB 06/10/17 03:00 06/10/17 03:59 DC 06/10/17 03:07 Lactated Ringer's (Lr) 1,000 ml @ 125 mls/hr Q8H IV* 06/10/17 15:40 06/11/17 09:58 DC Methylergonovine Maleate (Methergine) 0.2 mg Q6H PRN PO VAGINAL BLEEDING 06/10/17 16:00 Morphine Sulfate (morphine) 1 mg Q8H PRN IV PAIN LEVEL 6-10 06/10/17 16:00 06/11/17 09:58 DC 06/11/17 02:56 Ibuprofen (Motrin) 600 mg Q6 PO 06/10/17 18:00 06/11/17 05:29 Ondansetron HCl (Zofran Inj) 4 mg Q6H PRN IV NAUSEA AND/OR VOMITING 06/10/17 16:00 Diphenhydramine HCl (Benadryl) 25 mg Q6H PRN PO PRURITUS 06/10/17 16:00 Zolpidem Tartrate (Ambien) 5 mg QHS PRN PO INSOMNIA 06/10/17 16:00 Senna/Docusate Sodium (Senokot-S) 1 tab BID PO 06/10/17 21:00 06/11/17 09:09 Witch Marci/ Glycerin (Tucks Pads) 1 pad BEDSIDE MEDICATION PRN WI HEMORRHOID/EPISIOTMY PAIN 06/10/17 16:00 Lanolin (Qjq-B-Plcude) 1 applic BEDSIDE MEDICATION PRN TOP BEDSIDE FOR SANTA TO NIPPLES 06/10/17 16:00 Measles/Mumps/ Rubella Vaccine Live (Mmr Ii Vaccine) 0.5 ml ONCE ONCE SC* 06/12/17 09:00 06/12/17 09:01 Diphtheria/ Tetanus/Acell Pertussis (Adacel) 0.5 ml ONCE ONCE IM* 06/12/17 09:00 06/12/17 09:01 Varicella Virus Vaccine Live 1350 unit 1,350 unit ONCE ONCE SC* 06/12/17 09:00 06/12/17 09:01 Oxytocin/Lactated Ringer's 500 ml @ 0 mls/hr ONCE PRN IV For Hemorrhage Management 06/10/17 16:00 Methylergonovine Maleate (Methergine) 0.2 mg ONCE PRN IM VAGINAL BLEEDING 06/10/17 16:00 Carboprost Tromethamine (Hemabate) 250 mcg ONCE PRN IM VAGINAL BLEEDING 06/10/17 16:00 Misoprostol (Cytotec) 1,000 mcg ONCE PRN WI VAGINAL BLEEDING 06/10/17 16:00 Acetaminophen/ Codeine Phosphate (Tylenol No.3) 2 tab Q4H PRN PO PAIN 06/11/17 09:00 06/11/17 09:09 . Breast feeding the new born. Advised to us Lanolin cream after breast feeding the new born. MYA BILL MD Jun 11, 2017 12:19
[2017-06-11 16:00] VITALS: BP 103/57; PULSE 82; RESP 20
--- NOTE | 2017-06-11 17:11 | OPPN ---
Date/Time of Note Date/Time of Note DATE: 06/11/17 TIME: 17:10 Anesthesia Follow up Anesthesia Follow up Last documented vital signs Vital Signs Date Time Temp Pulse Resp B/P Pulse Ox O2 Delivery O2 Flow Rate FiO2 06/11/17 12:17 98.2 76 20 125/74 Room Air Respiratory function: WNL Cardiovascular function: WNL Comments POD 1 s/p labor epidural for , Pt is doing well, VSS, A&OX3, no n/v, pain controlled, tolerating po, ADLs, FIGUEROA, motor and sensory intact, site c/d/i, no erythema, TTP. no complications from epidural. baby at bedside. SIMONE ARGUETA MD Jun 11, 2017 17:11
[2017-06-11 20:00] VITALS: BP 104/56; PULSE 72; RESP 20
[2017-06-12 04:27] VITALS: BP 104/69; PULSE 72; RESP 20
[2017-06-12] MEDS: IBUPROFEN 600 MG TAB PO SCH ×2 (05:31→11:35)
[2017-06-12 08:00] VITALS: BP 105/61; PULSE 82; RESP 18
[2017-06-12] MEDS ORDERED: MEASLES,MUMPS,RUBELLA VACCINE INJ SC* ONE (09:00)
[2017-06-12] MEDS ORDERED: DIPHTH/TET/ACEL PERTUSS (ADULT) 0.5 ML VIAL IM* ONE (09:00)
[2017-06-12] MEDS ORDERED: VARICELLA VACCINE LIVE/PF 1,350 UNIT/0.5 ML ML SC* ONE (09:00)
[2017-06-12] MEDS: SENNA/DOCUSATE NA (8.6MG/50MG) TAB PO SCH (09:15)
--- NOTE | 2017-06-12 13:47 | DS ---
Date/Time of Note Date/Time of Note DATE: 06/12/17 TIME: 13:46 Obstetrical Discharge Record Final Diagnosis Final Diagnosis: Term delivered Vaginal Delivery Obstetrical Delivery: Spontaneous Condition on Discharge Physical Assessment Voiding: Yes Bowel Movement: Yes Breast: Soft, non-tender Fundus: Firm Calf Tenderness: No Patient Condition: Stable ANNAMARIE XIAO MD Jun 12, 2017 13:47
== END 2017-06-12 14:50 | disposition home or self-care (01) | DRG 775 ==
LOC: OBT 20:47 → L-D 20:48 → OBT 22:55 → L-D 22:55 → PP1 06-10 15:01
PROVIDERS: ADMIT Obstetrics & Gynecology; ATTEND Obstetrics & Gynecology
PROC: 10E0XZZ Delivery of Products of Conception, External Approach (ICD-10-PCS; principal; 2017-06-10)
DX: O48.0 Post-term pregnancy (principal); O99.02 Anemia complicating childbirth; Z3A.40 40 weeks gestation of pregnancy; Z37.0 Single live birth
CPT/HCPCS: 62319; 76815; 76818; 80307; 81001; 85014; 85018; 85025; 85610; 85730; 86592; 86703; 86762; 86900; 86901; 87340; 90715; 90716; G0463; J0290; J0456; J1200; J2270; J2405; J2590; J3010; J7120